=== PATIENT | male | born 1950 | race Caucasian/White ===

== ENCOUNTER → 2017-02-20 | Outpatient (REF) | payer OTHER ==
[2017-02-20 13:47] LABS: FOLATE 17.2 NG/ML
== END ==
LOC: M LAB REF 12:30
PROVIDERS: ATTEND Internal Medicine
DX: K21.9 Gastro-esophageal reflux disease without esophagitis (principal)

== ENCOUNTER → 2017-04-07 | Outpatient (REF) | payer OTHER | LOC: M SMT 17:08 | PROVIDERS: ATTEND Urology | DX: N39.0 Urinary tract infection, site not specified (principal) ==

== ENCOUNTER → 2017-06-01 | Outpatient (REF) | payer OTHER | LOC: M SMT 17:21 | PROVIDERS: ATTEND Urology | DX: N39.0 Urinary tract infection, site not specified (principal); N45.1 Epididymitis ==

== ENCOUNTER → 2017-06-09 | Outpatient (REF) | payer OTHER | LOC: M SMT 16:53 | PROVIDERS: ATTEND Urology | DX: R39.9 Unspecified symptoms and signs involving the genitourinary system (principal) ==

== ENCOUNTER → 2017-06-29 | Outpatient (REF) | payer OTHER | LOC: M SMT 13:04 | PROVIDERS: ATTEND Urology | DX: N39.0 Urinary tract infection, site not specified (principal) ==

== ENCOUNTER → 2017-07-13 | Outpatient (CLI) | payer OTHER ==
--- NOTE | 2017-07-13 16:12 | REP ---
CT of the abdomen pelvis without IV or bowel contrast: Comparison is 03/19/2010. The visualized lung olivarez are unremarkable. The unenhanced hepatic parenchyma demonstrates a 2.5 cm cyst in the dome of the liver laterally. This measured 2.2 cm previously. The hepatic parenchyma is otherwise homogeneous and unremarkable. The gallbladder, pancreas and spleen are unremarkable. The adrenals are unremarkable. There is no hydronephrosis. No renal calculi or cysts. The study is insensitive for renal masses in the absence of IV contrast. The abdominal aorta is unremarkable. There is no bowel distension. Mesentery is unremarkable. Pelvis: The appendix is unremarkable. The bladder is unremarkable. There is no adenopathy or ascites. There is degenerative disc disease in the lumbar spine. Impression: Hepatic cyst. Degenerative disc disease in the lumbar spine. Otherwise, negative CT without IV or bowel contrast. Signed by Armen Tovar MD 07/13/2017 04:04 P
== END ==
LOC: M RAD 13:07
PROVIDERS: ATTEND Urology
DX: N39.0 Urinary tract infection, site not specified (principal)

== ENCOUNTER → 2018-01-26 | Outpatient (REF) | payer OTHER ==
[2018-01-26 13:47] LABS: APPEARANCE, URINE CLEAR (CLEAR); BACTERIA, URINE AUTO NEGATIVE (NEGATIVE); BILIRUBIN, URINE AUTO NEGATIVE (NEGATIVE); BLOOD, URINE BLOOD NEGATIVE (NEGATIVE); COLOR, URINE YELLOW (YELLOW); GLUCOSE, URINE (UA) AUTO NEGATIVE (NEGATIVE); KETONE, URINE AUTO NEGATIVE (NEGATIVE); LEUKOCYTE ESTERASE, URINE AUTO TRACE (NEGATIVE); MUCUS, URINE SMALL (NEGATIVE); NITRITE, URINE AUTO NEGATIVE (NEGATIVE); PROTEIN, URINE AUTO NEGATIVE (NEGATIVE); RBC, URINE AUTO 1 /HPF (0-3); SPECIFIC GRAVITY URINE AUTO 1.015 (1.002-1.035); SQUAMOUS EPITHELIAL CELL UR AU 0 /HPF (0-6); UROBILINOGEN, URINE AUTO 0.2 mg/dL (0.0-2.0); WBC, URINE AUTO 3 /HPF (0-3)
== END ==
LOC: M SMT 13:08
DX: N39.0 Urinary tract infection, site not specified (principal); N40.1 Benign prostatic hyperplasia with lower urinary tract symptoms
CPT/HCPCS: 81001

== ENCOUNTER → 2018-06-27 | Outpatient (CLI) | payer OTHER | LOC: M WUC 16:23 | DX: M79.642 Pain in left hand (principal); M19.042 Primary osteoarthritis, left hand | CPT/HCPCS: 73140 ==

== ENCOUNTER → 2019-11-28 | Outpatient (CLI) | payer OTHER ==
--- NOTE | 2019-11-28 21:48 | REP ---
Clinical: Cough . Comparison: None . Technique: PA and lateral. Findings: The mediastinum and cardiac silhouette are normal. The lung olivarez are clear and without acute consolidation, effusion, or pneumothorax. The skeletal structures are intact and normal. Impression: 1. No acute cardiopulmonary process or focal consolidation. If the patient remains symptomatic consider chest CT for further investigation. . Electronically Signed by Andrew Cary MD 11/28/2019 09:40 P
== END ==
LOC: M WUC 16:11
PROVIDERS: ATTEND Physician Assistant
DX: J20.9 Acute bronchitis, unspecified (principal); R05 Cough

== ENCOUNTER → 2020-02-26 | Outpatient (CLI) | payer OTHER | LOC: M LABSMTC 12:45 | PROVIDERS: ATTEND Family Medicine | DX: Z03.818 Encounter for observation for suspected exposure to other biological agents ruled out (principal); Z11.59 Encounter for screening for other viral diseases ==

== ENCOUNTER → 2020-04-21 | Outpatient (REF) | payer OTHER | LOC: M WUC 20:12 | PROVIDERS: ATTEND Physician Assistant | DX: R30.0 Dysuria (principal) ==

== ENCOUNTER → 2020-05-08 | Outpatient (CLI) | payer OTHER ==
--- NOTE | 2020-05-08 16:06 | REP ---
BILATERAL HIP: REASON: Hip pain. There are no priors for comparison. There is moderate asymmetric hip joint space narrowing bilaterally without buttressing, fracture, or dislocation. IMPRESSION: Bilateral degenerative hip joint changes. Electronically Signed by Fadi Willett DO 05/08/2020 05:02 P
== END ==
LOC: M WUC 13:00
PROVIDERS: ATTEND Physician Assistant Medical
DX: M16.0 Bilateral primary osteoarthritis of hip (principal)

== ENCOUNTER → 2020-06-24 | Outpatient (REF) | payer OTHER | LOC: M LAB REF 09:50 | PROVIDERS: ATTEND Internal Medicine Nephrology | DX: N39.0 Urinary tract infection, site not specified (principal) ==

== ENCOUNTER → 2020-07-06 | Outpatient (CLI) | payer MEDICARE, OTHER ==
--- NOTE | 2020-07-23 12:42 | REP ---
NONCONTRAST CT ABDOMEN AND PELVIS CLINICAL: Chronic tubular nephritis. COMPARISON: 03/19/2010. FINDINGS: Lung bases are clear. Visualized heart and pericardium are normal. Liver demonstrates stable 2.2 cm cystic lesion in the right hepatic lobe, which may represent cyst or hemangioma. Spleen, pancreas, and bilateral adrenal glands are normal. Gallbladder demonstrates sludge and small gallstones without acute cholecystitis. The kidneys demonstrate mild symmetric chronic appearing perinephric stranding along with 1.2 cm left renal hypodensity suggesting cyst. No hydronephrosis or nephrolithiasis. The enteric system is without obstruction or acute inflammatory process. Normal terminal ileum and appendix are identified in the right lower quadrant. Few scattered sigmoid diverticula noted without acute diverticulitis. Pelvis demonstrates normal bladder and age appropriate prostate/seminal vesicles. No ascites. No free air. No adenopathy. Atherosclerotic changes to the aorta noted without aneurysm. Musculoskeletal structures demonstrate age-related changes without acute osseous abnormality. IMPRESSION: * Stable hepatic hypodensity likely representing benign cyst or hemangioma. * Mild chronic perinephric stranding and small left renal hypodensity likely cyst, which may be followed by ultrasound. No hydronephrosis or nephrolithiasis. * Few scattered sigmoid diverticula without acute diverticulitis. * No further acute abdominopelvic pathology appreciated. [facility]
== END ==
LOC: M RAD 15:35
PROVIDERS: ATTEND Internal Medicine Nephrology
DX: N11.9 Chronic tubulo-interstitial nephritis, unspecified (principal); N13.9 Obstructive and reflux uropathy, unspecified; I70.0 Atherosclerosis of aorta

== ENCOUNTER → 2020-07-10 | Outpatient (REF) | payer OTHER | LOC: M LAB REF 17:06 | PROVIDERS: ATTEND Internal Medicine Nephrology | DX: N39.0 Urinary tract infection, site not specified (principal) ==

== ENCOUNTER → 2020-08-27 | Outpatient (REF) | payer OTHER | LOC: M LAB REF 16:53 | PROVIDERS: ATTEND Internal Medicine Nephrology | DX: N39.0 Urinary tract infection, site not specified (principal) ==

== ENCOUNTER → 2020-09-08 | Outpatient (CLI) | payer OTHER ==
[2020-09-08 13:09] LABS: BASO % 0.4 % (0.0-1.0); EOS # 0.2 10^3/uL (0.0-0.5); HEMATOCRIT 43.6 % (42.0-52.0); HEMOGLOBIN 14.3 g/dl (13.5-17.5); LYMPH # 1.3 10^3/uL (1.5-5.0); LYMPH % 17.1 % (24.0-44.0); MEAN CORPUSCULAR HEMOGLOBIN 29.8 pg (27.0-33.0); MEAN CORPUSCULAR HGB CONC 32.8 g/dl (32.0-36.5); MEAN CORPUSCULAR VOLUME 90.8 fl (80.0-96.0); MONO # 0.6 10^3/uL (0.0-0.8); MONO % 8.2 % (0.0-5.0); NEUTROPHILS # 5.4 10^3/uL (1.5-8.5); NEUTROPHILS % 71.8 % (36.0-66.0); PLATELET COUNT, AUTOMATED 242 10^3/uL (150-450); WHITE BLOOD COUNT 7.6 10^3/uL (4.0-10.0)
[2020-09-08 13:43] LABS: ALBUMIN 3.9 GM/DL (3.2-5.2); BILIRUBIN,TOTAL 0.6 MG/DL (0.2-1.0); C REACTIVE PROTEIN QUANTITATIV 1.83 MG/DL (0.00-0.30); CALCIUM LEVEL 9.1 MG/DL (8.8-10.2); CREATININE FOR GFR 1.51 MG/DL (0.70-1.30); ERYTHROCYTE SEDIMENTATION RATE 17 mm/hr (0-20); GLOMERULAR FILTRATION RATE 48.9 (>42); POTASSIUM SERUM 4.7 MEQ/L (3.5-5.1); TOTAL PROTEIN 7.1 GM/DL (6.4-8.2); URIC ACID 7.5 MG/DL (3.5-7.2)
[2020-09-09 15:07] LABS: ANTINUCLEAR ANTIBODIES DIRECT Negative (Negative); Lyme Disease IgG/IgM Antibodie <0.91 ISR (0.00-0.90); Lyme Disease IgM Ab Quantitati <0.80 index (0.00-0.79)
== END ==
LOC: M WUC 10:31
PROVIDERS: ATTEND Physician Assistant
DX: M10.072 Idiopathic gout, left ankle and foot (principal); M79.10 Myalgia, unspecified site

== ENCOUNTER → 2021-02-11 | Outpatient (REF) | payer OTHER | LOC: M LAB REF 15:40 | PROVIDERS: ATTEND Physician Assistant | DX: N39.0 Urinary tract infection, site not specified (principal) ==

== ENCOUNTER → 2021-02-25 | Outpatient (REF) | payer OTHER | LOC: M LAB REF 15:52 | PROVIDERS: ATTEND Physician Assistant | DX: N39.0 Urinary tract infection, site not specified (principal) ==

== ENCOUNTER → 2021-04-05 | Outpatient (REF) | payer OTHER | LOC: M LAB REF 17:28 | PROVIDERS: ATTEND Internal Medicine Nephrology | DX: N39.0 Urinary tract infection, site not specified (principal) ==

== ENCOUNTER → 2021-04-29 | Outpatient (REF) | payer OTHER ==
[2021-04-29 20:17] LABS: APPEARANCE, URINE CLOUDY (CLEAR); BACTERIA, URINE AUTO NEGATIVE (NEGATIVE); BILIRUBIN, URINE AUTO NEGATIVE (NEGATIVE); BLOOD, URINE BLOOD 1+ (NEGATIVE); COLOR, URINE YELLOW (YELLOW); GLUCOSE, URINE (UA) AUTO NEGATIVE (NEGATIVE); KETONE, URINE AUTO NEGATIVE (NEGATIVE); LEUKOCYTE ESTERASE, URINE AUTO 3+ (NEGATIVE); MUCUS, URINE SMALL (NEGATIVE); NITRITE, URINE AUTO NEGATIVE (NEGATIVE); PROTEIN, URINE AUTO NEGATIVE (NEGATIVE); RBC, URINE AUTO 17 /HPF (0-3); SPECIFIC GRAVITY URINE AUTO 1.016 (1.002-1.035); SQUAMOUS EPITHELIAL CELL UR AU 1 /HPF (0-6); TRANSITIONAL EPITHELIAL AUTO 1 /HPF; UROBILINOGEN, URINE AUTO 0.2 mg/dL (0.0-2.0); WBC, URINE AUTO TNTC /HPF (0-3)
== END ==
LOC: M LAB REF 17:24
PROVIDERS: ATTEND Internal Medicine Nephrology
DX: N39.0 Urinary tract infection, site not specified (principal)

== ENCOUNTER → 2021-05-10 | Outpatient (CLI) | payer OTHER ==
--- NOTE | 2021-05-10 11:36 | REP ---
INDICATION: NEPHRITIS. COMPARISON: 07/06/2020 TECHNIQUE: Noncontrast CT with coronal and sagittal reconstructions provided. FINDINGS: CT abdomen: Lung bases show no effusion, infiltrate or acute finding. The heart is not enlarged no pericardial thickening or effusion. No hiatal hernia. The right hepatic lobe shows a peripheral cyst about 2.8 cm. No other focal hepatic lesion, intrahepatic biliary dilatation nor adjacent ascites. Overall vertical dimension is 22 cm of it is mildly enlarged no fatty infiltration. Spleen is maximum diameter of 12.5 cm, not enlarged. Gallbladder shows no calcified stone or mass. Pancreas, adrenal glands and proximal small bowel loops were unremarkable. There is a hypodense focus in the lower pole left kidney measuring 16 mm suggestive of cyst. I do not see hydronephrosis or calcification in the kidney. The right kidney shows no definite cyst, solid mass or stone. There is no hydronephrosis or hydroureter. No ureteral stone. Lung windows show no evidence for perforation or free air in the abdomen or pelvis. No generalized ascites. The aorta is tortuous a the few scattered calcifications but no aneurysm no periaortic, other retroperitoneal or mesenteric pathologic sized lymphadenopathy abdominal portions of the colon show a few scattered diverticula without signs of colitis or diverticulitis and no mass. Bone windows show anterior superior grade 1 compression deformity of the L3 unchanged. Marginal osteophytes present and some facet arthropathy, all age appropriate. Visualized ribs were unremarkable. CT pelvis: Sacrum, SI joints, pelvis and hips show degenerative changes without fracture or destructive lesion. Right distal left colon shows a few scattered diverticula without signs of diverticulitis. The sigmoid and rectum are unremarkable. Bladder is well distended, it is wall is slightly thickened. I do not see stone or mass. There is a prostate indentation at the bladder base. Distal ureters without dilatation or stone. Small bowel loops in the pelvis are unremarkable. No ventral or inguinal hernia nor pathologic sized inguinal adenopathy. IMPRESSION: Lower pole cyst acute left kidney up to 16 mm. No hydronephrosis, hydroureter, significant atrophy, solid mass or stone disease on either side. No hydroureter or ureteral stone. Scattered diverticulosis the in the colon without diverticulitis. Small bowel loops and appendix are normal. Simple cyst peripheral right hepatic lobe unchanged with some hepatomegaly but no fatty infiltration. Gallbladder, adrenal glands, pancreas and spleen unremarkable. No other significant or acute finding. Stable exam. <Electronically signed by Alex Farhat > 05/10/21 [id number]
== END ==
LOC: M RAD 09:05
PROVIDERS: ATTEND Internal Medicine Nephrology
DX: N11.9 Chronic tubulo-interstitial nephritis, unspecified (principal); N13.9 Obstructive and reflux uropathy, unspecified; N28.1 Cyst of kidney, acquired; K57.30 Diverticulosis of large intestine without perforation or abscess without bleeding; K76.89 Other specified diseases of liver

== ENCOUNTER → 2021-05-17 | Outpatient (REF) | payer OTHER | LOC: M LAB REF 17:21 | PROVIDERS: ATTEND Internal Medicine Nephrology | DX: N39.0 Urinary tract infection, site not specified (principal) ==

== ENCOUNTER → 2021-08-09 | Outpatient (CLI) | payer OTHER ==
--- NOTE | 2021-08-09 09:40 | REP ---
INDICATION: BLADDER WALL THICKENING COMPARISON: None TECHNIQUE: Real time B-mode ultrasound examination using curved array transducer. FINDINGS: Bladder demonstrates mild wall thickening and trabeculations without focal bladder mass. Prostate gland is mildly enlarged measuring 3.8 x 4.7 x 3.7 cm (35 cc). Prevoid bladder measures 14.1 x 9.7 x 6.5 cm (580 cc) Postvoid bladder measures 11.9 x 8.8 x 5.8 cm (400 cc) Postvoid residual: 68% IMPRESSION: 1. Bladder wall thickening and increased postvoid residual volume suggesting chronic outlet obstruction. <Electronically signed by Andrew Cary > 08/09/21 [id number]
== END ==
LOC: M RAD 08:57
PROVIDERS: ATTEND Internal Medicine
DX: D41.4 Neoplasm of uncertain behavior of bladder (principal)

== ENCOUNTER → 2021-10-05 | Outpatient (REF) | payer OTHER | LOC: M LAB REF 13:05 | PROVIDERS: ATTEND Internal Medicine Nephrology | DX: N39.0 Urinary tract infection, site not specified (principal) ==

== ENCOUNTER → 2022-03-16 | Outpatient (REF) | payer MEDICARE, OTHER ==
[2022-03-16 13:17] LABS: PROSTATIC SPECIFIC AG MONITOR 0.8 NG/ML (< 4.00)
[2022-03-16 13:24] LABS: ESTRADIOL 46.3 PG/ML (<39.8)
[2022-03-17 18:09] LABS: TESTOSTERONE FREE (DIRECT) 15.9 pg/mL (6.6-18.1)
== END ==
LOC: M LAB REF 12:21
PROVIDERS: ATTEND Internal Medicine
DX: E29.1 Testicular hypofunction (principal); R97.20 Elevated prostate specific antigen [PSA]

== ENCOUNTER → 2022-03-22 | Outpatient (CLI) | payer MEDICARE, OTHER | LOC: M WUC 10:51 | PROVIDERS: ATTEND Internal Medicine | DX: R05.9 Cough, unspecified (principal); R06.2 Wheezing; N18.31 Chronic kidney disease, stage 3a; R31.9 Hematuria, unspecified ==

== ENCOUNTER → 2022-03-22 | Outpatient (REF) | payer MEDICARE, OTHER ==
[2022-03-22 13:07] LABS: BACTERIA, URINE AUTO NEGATIVE (NEGATIVE); MUCUS, URINE SMALL (NEGATIVE); RBC, URINE AUTO 1 /HPF (0-3); SQUAMOUS EPITHELIAL CELL UR AU 2 /HPF (0-6); WBC, URINE AUTO 1 /HPF (0-3)
== END ==
LOC: M LAB REF 12:37
PROVIDERS: ATTEND Internal Medicine
DX: N18.31 Chronic kidney disease, stage 3a (principal); R31.9 Hematuria, unspecified

== ENCOUNTER → 2022-06-08 | Outpatient (CLI) | payer MEDICARE, OTHER ==
[~2022-06-08] MED LIST: CENT1TAB PO; SILD100T PO; TAMS1CAP17 PO
== END ==
LOC: M LABSMTC 11:39
PROVIDERS: ATTEND Anesthesiology
DX: Z01.812 Encounter for preprocedural laboratory examination (principal); Z20.822 Contact with and (suspected) exposure to COVID-19

== ENCOUNTER → 2022-09-27 | Outpatient (REF) | payer MEDICARE ==
[2022-09-28 10:20] LABS: PROSTATIC SPECIFIC AG MONITOR 1.01 NG/ML (< 4.00)
== END ==
LOC: M LAB REF 17:16
PROVIDERS: ATTEND Internal Medicine Nephrology
DX: N39.0 Urinary tract infection, site not specified (principal); D49.4 Neoplasm of unspecified behavior of bladder; F52.21 Male erectile disorder; R97.20 Elevated prostate specific antigen [PSA]

== ENCOUNTER → 2022-09-27 | Outpatient (CLI) | payer MEDICARE, OTHER | LOC: M RAD 09:46 | PROVIDERS: ATTEND Internal Medicine Nephrology | DX: N28.1 Cyst of kidney, acquired (principal); D18.03 Hemangioma of intra-abdominal structures ==

== ENCOUNTER → 2022-10-03 | Outpatient (REF) | payer MEDICARE ==
[2022-10-04 10:09] LABS: TESTOSTERONE FREE (DIRECT) 5.6 pg/mL (6.6-18.1)
== END ==
LOC: M LAB REF 12:12
PROVIDERS: ATTEND Physician Assistant Medical
DX: E29.1 Testicular hypofunction (principal)

== ENCOUNTER → 2023-04-11 | Outpatient (REF) | payer MEDICARE ==
[2023-04-12 15:08] LABS: TESTOSTERONE FREE (DIRECT) 2.9 pg/mL (6.6-18.1)
== END ==
LOC: M LAB REF 12:32
PROVIDERS: ATTEND Internal Medicine
DX: E29.1 Testicular hypofunction (principal)

== ENCOUNTER → 2023-05-10 | Outpatient (REF) | payer MEDICARE ==
[2023-05-13 00:06] LABS: CYCLIC CITRULLINATED PEPTIDE 5 units (0-19)
== END ==
LOC: M LAB REF 16:40
PROVIDERS: ATTEND Internal Medicine
DX: M25.549 Pain in joints of unspecified hand (principal)

== ENCOUNTER → 2024-05-09 | Outpatient (REF) | payer MEDICARE | LOC: M LAB REF 12:53 | PROVIDERS: ATTEND Internal Medicine | DX: E29.1 Testicular hypofunction (principal) ==

== ENCOUNTER → 2024-07-22 | Outpatient (CLI) | payer MEDICARE | LOC: M WUC 09:54 | PROVIDERS: ATTEND Student in an Organized Health Care Education/Training Program | DX: M25.552 Pain in left hip (principal) ==

== ENCOUNTER → 2024-08-14 | Outpatient (CLI) | payer MEDICARE | LOC: M WUC 13:27 | PROVIDERS: ATTEND Internal Medicine | DX: M54.32 Sciatica, left side (principal); M51.369 Other intervertebral disc degeneration, lumbar region without mention of lumbar back pain or lower extremity pain ==

== ENCOUNTER → 2025-06-05 | Outpatient (REF) | payer MEDICARE ==
[2025-06-09 16:22] LABS: LYME TOTAL ANTIBODY CIA <= 0.90 Index (<=0.90)
== END ==
LOC: M LABWUC 14:23 → M LAB REF 14:23
PROVIDERS: ATTEND Student in an Organized Health Care Education/Training Program
DX: R53.83 Other fatigue (principal)

== ENCOUNTER → 2025-06-18 | Outpatient (REF) | payer MEDICARE | LOC: M LAB REF 14:21 | PROVIDERS: ATTEND Internal Medicine | DX: Z13.9 Encounter for screening, unspecified (principal); R53.83 Other fatigue ==

== ENCOUNTER → 2025-08-01 | Outpatient (CLI) | payer MEDICARE | LOC: M RAD 12:57 | PROVIDERS: ATTEND Internal Medicine Nephrology | DX: N28.1 Cyst of kidney, acquired (principal); N42.89 Other specified disorders of prostate; N32.89 Other specified disorders of bladder ==